=== PATIENT | female | born 1970 | race African-American/Black ===

== ENCOUNTER 2020-04-30 16:03 | Emergency (ER) | payer OTHER ==
[~2020-04-30] VITALS: Ht 165.1 cm; Wt 73.0 kg
[2020-04-30] MEDS ORDERED: MORPHINE SULFATE 4 MG/ML CPJ (NOT FOR IM USE) IV ONE (17:00)
[2020-04-30] MEDS ORDERED: KETOROLAC 30MG/ML VIAL IV ONE (17:00)
[2020-04-30] MEDS ORDERED: DEXAMETHASONE 10 MG/ML VIAL IV ONE (17:00)
[2020-04-30] MEDS ORDERED: ONDANSETRON HCL 4MG/2ML INJ IV ONE (17:00)
[2020-04-30] MEDS ORDERED: CYCL5TAB MT (18:16)
[2020-04-30] MEDS ORDERED: IBUP-2028 MT (18:16)
[2020-04-30 19:03] VITALS: BP 180/88
== END 2020-04-30 19:35 | disposition home or self-care (01) ==
LOC: ER 16:03
DX: M54.5 Low back pain (principal); I10 Essential (primary) hypertension; F17.210 Nicotine dependence, cigarettes, uncomplicated; Z71.6 Tobacco abuse counseling
CPT/HCPCS: 93005; 96374; 96375; 99284; 99406; J1100; J1885; J2270; J2405

== ENCOUNTER 2020-09-13 02:29 | Emergency (ER) | payer OTHER ==
[~2020-09-13] VITALS: Ht 170.2 cm; Wt 68.0 kg
[~2020-09-13 02:29] MED LIST: CYCL5TAB MT; IBUP-2028 MT
[2020-09-13] MEDS ORDERED: ONDANSETRON HCL 4MG/2ML INJ IV STA (03:24)
[2020-09-13] MEDS ORDERED: MORPHINE SULFATE 4 MG/ML CPJ (NOT FOR IM USE) IV STA (03:24)
[2020-09-13] MEDS ORDERED: SODIUM CHLORIDE 0.9% 1,000 ML IV ONE (03:30)
[2020-09-13 03:40] VITALS: BP 168/88
== END 2020-09-13 05:06 | disposition left against medical advice (07) ==
LOC: ER 02:29
DX: R10.30 Lower abdominal pain, unspecified (principal); R11.2 Nausea with vomiting, unspecified; I10 Essential (primary) hypertension
CPT/HCPCS: 99283; J7030